=== PATIENT | female | born 1955 | race Caucasian/White ===

== ENCOUNTER 2019-11-17 00:02 | Outpatient (CLI) | payer BC, SELFPAY ==
[2019-11-17 18:00] LABS: SARS-CoV-2 RNA PCR Negative
== END 2019-11-17 00:03 | disposition home or self-care (01) ==
LOC: ANHCOVIDDT 00:02
PROVIDERS: PCP Family Medicine; Visit Provider Internal Medicine Gastroenterology
DX: Z01.812 Encounter for preprocedural laboratory examination (principal); Z20.828 Contact with and (suspected) exposure to other viral communicable diseases
CPT/HCPCS: 87635; C9803; U0003

== ENCOUNTER 2019-11-20 00:02 | Day surgery (SDC) | payer BC, SELFPAY ==
[2019-11-14 08:29] VITALS: BMI 32.2
[2019-11-20 07:45] VITALS: BP 138/82; PULSE 80; RESP 18; TEMP 36.5; O2SAT 99
[2019-11-20] MEDS: LACTATED RINGERS 1,000 ML 150 ML IV CONT (08:12)
--- NOTE | 2019-11-20 08:23 | WPDANESEPPF ---
Anes - Initial Pre Proc Eval Procedure: Operation Date: 11/20/19 09:00 Proposed Procedures p Esophagogastroduodenoscopy - Francisco Patterson MD Date/Time: 11/20/19 08:23 Surgeon: Francisco Patterson MD Pre Op Diagnosis: GERD Patient Data Age: 64 Gender: F Height: 5 ft 2 in Weight: 82.3 kg Last Vital Signs Temp 36.5 C 11/20/19 07:45 Pulse 80 11/20/19 07:45 Resp 18 11/20/19 07:45 BP 138/82 11/20/19 07:45 Pulse Ox 99 11/20/19 07:45 Allergies Allergy/AdvReac Type Severity Reaction Status Date / Time No Known Allergies Allergy Unverified 11/20/19 07:53 Home Medications Medication Instructions Recorded Confirmed Type furosemide 40 mg tablet 20 mg PO QAM 05/22/19 11/20/19 History omeprazole magnesium 20 mg 20 mg PO DAILY 05/22/19 11/20/19 History capsule,delayed release lisinopril 10 mg tablet 10 mg PO ONCE #90 tablet 07/09/19 11/20/19 Rx montelukast 10 mg PO PRN 11/14/19 11/20/19 History Patient hx anesthesia problems: none Family hx anesthesia problems: none PMFSH Past Medical History Medical History Colon cancer screening Essential (primary) hypertension GERD (gastroesophageal reflux disease) Social History Social History Smoking status: Never smoker Second hand tobacco smoke exposure: No Alcohol intake: current Drinks per week: 7 Substance use: never Substance use type: does not use Gender identity (if verbalized by the patient): Female Anes - Eval Final PreProcedure Day of Procedure 11/20/19 08:23 Patient weight: obese Heart: regular rate and rhythm Lungs: clear to auscultation Airway: Mallampati scale class II Neurological: alert and oriented Last oral intake: >/= 8 hours ASA classification: II Emergent: no Anesthetic plan: proceed Anesthesia type and monitoring: general GIVS and standard monitoring Informed Consent: The patient's anesthetic plan and its attendant risks and benefits were discussed with the patient/family/POA. Questions were solicited and answers provided to the satisfaction of the patient/family/POA.
--- NOTE | 2019-11-20 08:53 | PM.HPGS ---
History of Present Illness History of Present Illness Consent: Risks, benefits, and alternatives have been discussed and questions answered. Patient agrees to proceed with procedure. Chief complaint: GERD Narrative: Soo Petty is a 64 year old female with gerd on ppi Review of Systems Constitutional: Constitutional: Denies headache(s) and Denies weakness Eyes: Eyes: Denies blurry vision ENT: Reports Normal hearing present, Denies headache(s) and Denies neck pain Cardiovascular: Cardiovascular: Denies chest pain and Denies dyspnea Respiratory: Respiratory: Denies dyspnea Gastrointestinal: Gastrointestinal: Reports no additional gastrointestinal complaints Genitourinary: Genitourinary: Denies dysuria Musculoskeletal: Musculoskeletal: Denies neck pain Integumentary/Breasts: Skin/Breast: Denies dry skin Neurologic: Reports Normal hearing present, Denies headache(s) and Denies weakness Psychiatric: Psychiatric: Denies anxiety Endocrine: Endocrine: Denies change in body appearance Hematologic/Lymphatic: Hematologic/Lymphatic: Denies easy bleeding Allergic/Immunologic: Allergic/Immunologic: Denies urticaria PMFSH Past Medical History Medical History Colon cancer screening Essential (primary) hypertension GERD (gastroesophageal reflux disease) Social History Social History Smoking status: Never smoker Second hand tobacco smoke exposure: No Alcohol intake: current Drinks per week: 7 Substance use: never Substance use type: does not use Gender identity (if verbalized by the patient): Female Meds Home Medications and Allergies Home Medications Medication Instructions Recorded Confirmed Type furosemide 40 mg tablet 20 mg PO QAM 05/22/19 11/20/19 History omeprazole magnesium 20 mg 20 mg PO DAILY 05/22/19 11/20/19 History capsule,delayed release lisinopril 10 mg tablet 10 mg PO ONCE #90 tablet 07/09/19 11/20/19 Rx montelukast 10 mg PO PRN 11/14/19 11/20/19 History Allergies Allergy/AdvReac Type Severity Reaction Status Date / Time No Known Allergies Allergy Unverified 11/20/19 07:53 Vital Signs Vital Signs - 24 hr 11/20/19 07:45 Temperature 97.7 F Pulse Rate 80 Respiratory Rate 18 Blood Pressure 138/82 Pulse Oximetry 99 Exam Const: General: comfortable and no acute distress HENMT: General nose exam: Normal nares present Eyes: General: appearance normal, both eyes and all related structures Neck: Neck: no JVD Resp: Auscultation: clear to auscultation bilaterally Cardio: Rate: regular rate Rhythm: regular rhythm GI: Inspection: non-distended GI Palp: Yes Soft to palpation Skin: General skin exam: normal color Neuro: General: gait normal Speech: normal speech Extrem: General: normal to inspection Psych: Mental Status: mental status grossly normal Assessment and Plan Assessment and plan (1) GERD (gastroesophageal reflux disease): Code(s): K21.9 - Gastro-esophageal reflux disease without esophagitis Status: Acute Assessment and Plan: will proceed with egd (2) Essential (primary) hypertension: Code(s): I10 - Essential (primary) hypertension Status: Acute
[2019-11-20 09:09] VITALS: BP 127/82; PULSE 74; RESP 23; O2SAT 97
[2019-11-20 09:21] VITALS: BP 131/82; PULSE 75; RESP 23; O2SAT 97
[2019-11-20 09:31] VITALS: BP 123/82; PULSE 69; RESP 17; O2SAT 100
== END 2019-11-20 09:43 | disposition home or self-care (01) ==
PROVIDERS: PCP Family Medicine; Visit Provider Internal Medicine Gastroenterology
PROC: 0DJ08ZZ Inspection of Upper Intestinal Tract, Via Natural or Artificial Opening Endoscopic (ICD-10-PCS; CPT 43235; principal; 2019-11-20 09:00)
DX: K21.0 Gastro-esophageal reflux disease with esophagitis (principal); K44.9 Diaphragmatic hernia without obstruction or gangrene; K29.50 Unspecified chronic gastritis without bleeding; I10 Essential (primary) hypertension; E66.9 Obesity, unspecified; Z68.33 Body mass index [BMI] 33.0-33.9, adult
CPT/HCPCS: 43239; 88305; J2001; J2704; J7120

== ENCOUNTER → 2020-10-21 13:59 | Outpatient (CLI) | payer BC, SELFPAY ==
--- NOTE | ~2020-10-21 | MM_ITS ---
EXAMINATION: MM screening [facility] BI w [facility] HISTORY: Screening TECHNIQUE: Craniocaudal and mediolateral oblique 3-D tomosynthesis images were obtained and synthetic 2-D images were generated. CAD analysis was submitted and interpreted. COMPARISON: Comparison to multiple prior studies sequentially, with oldest reviewed study dated 02/2018. BREAST PARENCHYMAL COMPOSITION: There are scattered areas of fibroglandular density. FINDINGS: There is no evidence of suspicious mass, calcification, or architectural distortion to sugg est malignancy in either breast. There has been no suspicious interval change. IMPRESSION: 1. No mammographic evidence of malignancy. 2. Recommend routine screening mammography in one year. BI-RADS Category 1: Negative Reviewed, dictated and finalized at location A.
== END ==
PROVIDERS: PCP Family Medicine; Visit Provider Family Medicine
DX: Z12.31 Encounter for screening mammogram for malignant neoplasm of breast (principal)
CPT/HCPCS: 77063; 77067

== ENCOUNTER → 2020-12-15 18:08 | Outpatient (CLI) | payer BC, SELFPAY ==
--- NOTE | ~2020-12-15 | DEXA_ITS ---
Bone Density Report Name: Soo Ceballos Age: 65 Sex: Female Ethnicity: White Date of : 1955 Indication: postmenopausal; screening for osteoporosis; Referring Provider: SANCHO KEYS Study: Bone densitometry was performed. Exam Date: December 15, 2020 Accession number: [id number] Bone Density: Region BMD T-score Z-score Classification AP Spine (L1-L4) 0.960 -0.8 0.9 Normal Femoral Neck (Left) 0.735 -1.0 0.4 Normal Total Hip (Left) 0.977 0.3 1.4 Normal Femoral Neck (Right) 0.777 -0.7 0.8 Normal Total Hip (Right) 0.970 0.2 1.4 Normal Total Hip Mean 0.974 0.3 1.4 Normal World Health Organization criteria for BMD impression classify patients as: Normal (T-score at or above -1.0), Osteopenia (T-score between -1.0 and -2.5), or Osteoporosis (T-score at or below -2.5). 10-year Fracture Risk: FRAX not reported because: All T-scores for Spine Total, Hip Total, Femoral Neck at or above -1.0 Clinical Information Provided by Patient: Has 3 or more alcoholic drinks per day Has used the following medications: Vitamin D, MTV Patient maximum height was 62.0 Menopause Age: 60 Drinks caffeinated beverages Onset of menses at age 15 Number of children 1 Impression: The patient has normal bone mass. The patient has risk factors, including: excessive alcohol use. Discussion: BONE DENSITY IS ABOVE THE MINIMUM DESIRABLE LEVEL AT ALL SKELETAL SITES TESTED. This patient?s bone mineral density is above the minimum desirable level (T-score -1.0 or better) at all sites measured. The patient should follow a healthful lifestyle (good nutrition with adequate calcium and vitamin D, and appropriate weight-bearing exercise). Follow-Up: Consider repeating this study in 5 years or sooner if there is some new clinical indication. Reported by: HUNTER on 12/15/2020 7:30:00 PM. Reviewed, dictated and finalized at location AGreg[facility] PICHARDO
== END ==
PROVIDERS: PCP Family Medicine; Visit Provider Family Medicine
DX: Z78.0 Asymptomatic menopausal state (principal)
CPT/HCPCS: 77080

== ENCOUNTER → 2022-04-02 16:21 | Outpatient (CLI) | payer BC, SELFPAY ==
--- NOTE | ~2022-04-02 | MM_ITS ---
EXAMINATION: MM screening [facility] BI w [facility] HISTORY: Screening TECHNIQUE: Craniocaudal and mediolateral oblique 3-D tomosynthesis images were obtained and synthetic 2-D images were generated. CAD analysis was submitted and interpreted. COMPARISON: Comparison to multiple prior studies sequentially, with oldest reviewed study dated 09/10. BREAST PARENCHYMAL COMPOSITION: There are scattered areas of fibroglandular density. FINDINGS: There is no evidence of suspicious mass, calcification, or architectural distortion to sugg est malignancy in either breast. There has been no suspicious interval change. IMPRESSION: 1. No mammographic evidence of malignancy. 2. Recommend routine screening mammography in one year. BI-RADS Category 1: Negative Reviewed, dictated and finalized at location A.
== END ==
PROVIDERS: PCP Family Medicine; Visit Provider Family Medicine
DX: Z12.31 Encounter for screening mammogram for malignant neoplasm of breast (principal)
CPT/HCPCS: 77063; 77067

== ENCOUNTER 2023-02-22 15:25 | Outpatient (RCR) | payer OTHER, SELFPAY ==
--- NOTE | 2023-02-22 16:26 | OPREHPOC ---
Outpatient Therapy Plan of Care This is a Multidisciplinary Plan of Care that may contain components documented by all disciplines (PT, OT, and ST.) PT Problem 1 PT Problem #1 Knowledge Deficit PT Goal 1 Goal 1* indep with HEP 2* demonstrate correct body mechanics with exercises/positioning PT Problem 2 PT Problem #2 Pain PT Goal 1 Goal 1* pt report pain at worst of 2/10 2* self assessment Oswestry score of 10% limitation in activity level PT Problem 3 PT Problem #3 Impaired Strength PT Goal 1 Goal 1* pt perform 20 reps of strengthening exercises on mat and standing positions 2* pt perform sitting ball exercises 10 reps with good trunk stability
--- NOTE | 2023-02-22 16:26 | PTOPEVAL1 ---
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 Sitting is the main cause of her pain increase. She reports working 8-10 hours/day and sitting for about 3 hours at a time on computer. Self assessment Oswestry score of 16% limitation in activity level. She does not know what exercises to do and does not want to hurt her back more by doing the wrong thing. With the evaluation: She has poor sitting and standing position of her trunk, with increased thoracic flexion and lubmar extension; decreased thoracic spinal mobility, weakness of abdominals, hip and trunk musculature. Skilled PT services are indicated for modalities to decrease pain, therapeutic exercises to increase strength and flexibility of trunk with education for home exercises, posture correction and work station position. Plan of Care Interventions Elect
--- NOTE | 2023-03-01 12:42 | PTOPDC ---
Assessment and note entered by Dejah Zepeda, PT Evaluation Information Assessment PT Clinical Summary PHYSICAL THERAPY DISCHARGE Soo received the PT evaluation on 02-22-23 for the diagnosis of low back pain. She then called and canceled all appointments due to increased pain. Therefore, she will be discharged from PT at this time. The goals were not achieved. Plan of Care PT Services Indicated No
== END 2023-03-03 13:29 | disposition home or self-care (01) ==
LOC: ANHPT 15:25
PROVIDERS: PCP Family Medicine; Visit Provider Physician Assistant
DX: M54.50 Low back pain, unspecified (principal)
CPT/HCPCS: 97110; 97161; 97530

== ENCOUNTER → 2023-07-05 13:27 | Outpatient (CLI) | payer OTHER, SELFPAY ==
--- NOTE | ~2023-07-05 | MM_ITS ---
EXAMINATION: MM screening [facility] BI w [facility] HISTORY: Screening TECHNIQUE: Craniocaudal and mediolateral oblique 3-D tomosynthesis images were obtained and synthetic 2-D images were generated. CAD analysis was submitted and interpreted. COMPARISON: Comparison to multiple prior studies sequentially, with oldest reviewed study dated 09/10. BREAST PARENCHYMAL COMPOSITION: There are scattered areas of fibroglandular density. FINDINGS: There is no evidence of suspicious mass, calcification, or architectural distortion to sugg est malignancy in either breast. There has been no suspicious interval change. IMPRESSION: 1. No mammographic evidence of malignancy. 2. Recommend routine screening mammography in one year. BI-RADS Category 1: Negative Reviewed, dictated and finalized at location A. LE OPERATOR
== END ==
PROVIDERS: PCP Physician Assistant; Visit Provider Physician Assistant
DX: Z12.31 Encounter for screening mammogram for malignant neoplasm of breast (principal)
CPT/HCPCS: 77063; 77067

== ENCOUNTER 2024-09-04 13:53 | Outpatient (CLI) | payer OTHER, SELFPAY ==
--- NOTE | ~2024-09-04 | MM_ITS ---
EXAMINATION: MM screening [facility] w [facility] HISTORY: Screening TECHNIQUE: Craniocaudal and mediolateral oblique 3-D tomosynthesis images were obtained and synthetic 2-D images were generated. CAD analysis was submitted and interpreted. COMPARISON: Comparison to multiple prior studies sequentially, with oldest reviewed study dated 09/10. BREAST PARENCHYMAL COMPOSITION: Not dense: There are scattered areas of fibroglandular density. FINDINGS: There is no evidence of suspicious mass, calcification, or architectural distortion to sugg est malignancy in either breast. There has been no suspicious interval change. IMPRESSION: 1. No mammographic evidence of malignancy. 2. Recommend routine screening mammography in one year. BI-RADS Category 1: Negative Reviewed, dictated and finalized at location B.
== END 2024-09-04 13:54 | disposition home or self-care (01) ==
PROVIDERS: PCP Family Medicine; Visit Provider Family Medicine
DX: Z12.31 Encounter for screening mammogram for malignant neoplasm of breast (principal)
CPT/HCPCS: 77063; 77067